=== PATIENT | male | born 1940 | race Caucasian/White ===

== ENCOUNTER 2016-09-09 12:46 | Emergency (ER) | END 2016-09-09 15:54 | disposition home or self-care (01) ==

== ENCOUNTER 2017-08-06 15:33 | Outpatient (CLI) | payer MEDICARE | END 2017-08-06 15:34 | disposition home or self-care (01) | LOC: LAB 15:33 | PROVIDERS: ATTEND Orthopaedic Surgery | DX: M25.552 Pain in left hip (principal) | CPT/HCPCS: 36415; 85651; 86140 ==

== ENCOUNTER 2017-08-14 14:04 | Outpatient (CLI) | payer MEDICARE ==
--- NOTE | 2017-08-14 17:04 | MRI Report ---
EXAM: RIGHT KNEE MRI WITHOUT CONTRAST EXAM DATE: 08/14/2017 03:09 PM. CLINICAL HISTORY: Right knee pain for 6 months. Difficulty extending the right knee. Posterior right knee swelling. Prostate cancer. COMPARISON: None. TECHNIQUE: Multiplanar, multisequence T1-weighted and fluid-sensitive sequences of the knee without c ontrast. Other: None. FINDINGS: Bones and Articular Cartilage: Marginal osteophytes at the femoral condyles, tibial plateau, and whatley lla. Focal grade 2-3 chondromalacia at the medial femoral condyle. Severe grade 4 chondromalacia and multiple subcortical cysts at the lateral patella and lateral trochlear facet. Grade 3-4 chondromalac ia at the median ridge of the patella and femoral trochlear groove. No patellar subluxation. Medial Meniscus: The medial meniscus is intact. Lateral Meniscus: The lateral meniscus is intact. Cruciate Ligaments: The anterior and posterior cruciate ligaments are intact. Collateral Ligaments: The medial collateral and lateral collateral ligamentous structures are intact. Tendons: The quadriceps, patellar, semimembranosus, and popliteus tendons are unremarkable. Musculature: Mild to moderate fatty atrophy at the biceps femoris muscle. Mild fatty atrophy at the s emimembranosus muscle. Severe fatty atrophy at the gastrocnemius muscle. Other: No effusion. No popliteal cyst. There are a few loose ossified bodies within the suprapatellar recess of the joint capsule. One of the larger loose bodies measures approximately 2.1 x 0.5 x 1 cm. The medial and lateral retinacula are intact. The subcutaneous tissues and fat pads are unremarkable . IMPRESSION: 1. Patellofemoral compartment osteoarthritis. 2. No ligament or meniscal injury. 3. Fatty atrophy within the biceps femoris, semimembranosus, and gastrocnemius muscles which may be d ue to a chronic denervation process. 4. Loose bodies within the suprapatellar recess of the joint capsule. [facility] MUSCULOSKELETAL [facility]IOLOGY SECTION Referring Provider Line: [phone] SITE ID: [id number]
== END 2017-08-14 14:05 | disposition home or self-care (01) ==
LOC: DI 14:04
PROVIDERS: ATTEND Orthopaedic Surgery
DX: M23.41 Loose body in knee, right knee (principal); M17.11 Unilateral primary osteoarthritis, right knee

== ENCOUNTER 2017-08-18 11:25 | Outpatient (CLI) | payer MEDICARE ==
--- NOTE | 2017-08-19 12:06 | Nuclear Medicine Report ---
EXAM: TRIPLE-PHASE BONE SCAN LIMITED EXAM DATE: 08/18/2017 04:16 PM. CLINICAL HISTORY: Possible prosthetic loosening. COMPARISON: X-ray 07/09/2017. TECHNIQUE: Patient was injected with 32 mCi of technetium 99m MDP intravenously with flow phase gamma camera imaging anteriorly over the hips, 5 seconds per frame for 1 minute. Subsequently, blood pool images of the the hips were obtained. The patient returned 3 hours later for multiple spot images of the hips and proximal femora. FINDINGS: Flow Phase: There is minimally increased tracer flow to the left. Blood Pool Phase: Minimal asymmetry, with slightly greater tracer accumulation in the region of the l eft hip. Delayed Phase: Left side: Increased tracer uptake along the femoral shaft of the prosthesis and in the left greater trochanter. This corresponds with periprosthetic loosening visible on the x-ray. Right side: Mildly increased tracer uptake at the distal tip of the femoral prosthesis, which may als o indicate loosening or physiologic reaction. IMPRESSION: 1. Mildly increased tracer localization to the left hip on the arterial and blood pool phases. Modera tely increased tracer uptake along the femoral stem of the prosthesis consistent with prosthetic loos ening. 2. Minimally increased tracer uptake at the distal tip of the femoral stem of the right hip prosthesi s, which may represent physiologic reaction or early prosthetic loosening. [facility] Referring Provider Line: [phone] SITE ID: [id number]
== END 2017-08-18 11:26 | disposition home or self-care (01) ==
LOC: DI 11:25
PROVIDERS: ATTEND Orthopaedic Surgery
DX: M25.552 Pain in left hip (principal)
CPT/HCPCS: 78315; A9503

== ENCOUNTER 2019-06-23 12:42 | Outpatient (CLI) | payer MEDICARE, OTHER ==
--- NOTE | 2019-06-24 15:51 | CT Report ---
Reason: S/P BILATERAL HIP REPLACEMENTS Procedure Date: 06/23/2019 Accession Number: [id number] / [id number] Procedure: CT - PELVIS WO CPT Code: FULL RESULT: EXAM: CT BONY PELVIS WITHOUT CONTRAST EXAM DATE: 06/23/2019 01:08 PM. CLINICAL HISTORY: Status post bilateral hip replacements. Abnormal lucency left femoral component of the left hip replacement compatible with loosening left hip radiographs 11/25/2017. COMPARISON: HIP 2 VIEW LT 10/28/2017 1:55 PM. BONE 3-PHASE 08/18/2017 12:34 PM. TECHNIQUE: Thin-section axial images were acquired of the pelvis without contrast. Post-processing: Coronal and sagittal reformats. Other: None. In accordance with CT protocol optimization, one or more of the following dose reduction techniques were utilized for this exam: automated exposure control, adjustment of mA and/or KV based on patient size, or use of iterative reconstructive technique. FINDINGS: Bones: There is left proximal femoral shaft osteopenia as noted on the radiograph 10/28/2017 without periprosthetic bony resorption to confirm prosthesis loosening. Asymmetric sclerosis proximal right femoral shaft with smooth periosteal new bone formation. Focal isotope uptake adjacent to the intramedullary stem right femur on the three-phase bone scan 08/18/2017. Less than 2 mm bony resorption distal intramedullary stem left femoral shaft. Sacroiliac Joints: No widening, erosions, or sclerosis. Symphysis Pubis: Unremarkable. Right Hip: Negative for right hip and total arthroplasty dislocation. Acetabular prosthesis is without evidence for loosening. Moderate right acetabulum spurring. Right acetabulum prosthesis well-seated posterior superior fixation screws. Left Hip: Left total hip arthroplasty is negative for dislocation. Minimal osseous mantle for two posterior left hip acetabulum fixation screws. Stable position of the proximal left femur intramedullary prosthesis as compared to the left hip radiographs 10/28/2017. Musculature: Severe asymmetric atrophy of the left psoas muscle. Severe postsurgical atrophy low lumbar and sacrum posterior paraspinal muscles with fatty replacement. Pelvic Cavity: The visualized bowel, bladder, and reproductive organs are unremarkable on this noncontrast exam. Prostatectomy and pelvic lymph node dissection. Low position of the bladder. Nondistended bladder. Umbilical hernia, 2.8 cm, with subcutaneous herniation of 3.3 cm properitoneal fat. Other: No lymphadenopathy. No free air or free fluid. The other visualized soft tissues are unremarkable. Spondylosis deformans lower lumbar spine. Ankylosis sacroiliac joints bilaterally consistent with ankylosing spondylitis. Moderate bilateral L4-L5, severe right L5-S1 and moderate left L5-S1 facet joint arthrosis. L4 and L5 wide laminectomy defects. IMPRESSION: 1. Proximal left femoral shaft osteopenia without significant bony resorption to confirm loosening. 2. Proximal right femoral shaft sclerosis and smooth periosteal reaction with no discrete periprosthetic fracture identified. Negative for bony resorption to confirm prosthesis loosening. 3. Bilateral sacroiliac joint ankylosis consistent with ankylosing spondylitis and there is lower lumbar and lumbosacral spondylosis deformans. 4. Consider repeat three-phase bone scan for comparison to 08/18/2017. [facility]
== END 2019-06-23 12:43 | disposition home or self-care (01) ==
LOC: DI 12:42
PROVIDERS: ATTEND Orthopaedic Surgery
DX: M85.88 Other specified disorders of bone density and structure, other site (principal); M89.8X8 Other specified disorders of bone, other site; M43.28 Fusion of spine, sacral and sacrococcygeal region; M47.816 Spondylosis without myelopathy or radiculopathy, lumbar region; M47.817 Spondylosis without myelopathy or radiculopathy, lumbosacral region; Z96.643 Presence of artificial hip joint, bilateral
CPT/HCPCS: 72192

== ENCOUNTER 2019-08-30 16:29 | Outpatient (CLI) | payer MEDICARE, OTHER ==
[2019-08-30 16:42] LABS: BASOPHILS # (AUTO) 0.1 10^3/uL (0.0-0.1); BASOPHILS % (AUTO) 0.9 %; EOSINOPHILS # (AUTO) 0.2 10^3/uL (0.0-0.7); EOSINOPHILS % (AUTO) 2.8 %; HGB - HEMOGLOBIN 14.7 g/dL (14.0-18.0); LYMPHOCYTES # (AUTO) 1.8 10^3/uL (1.5-3.5); LYMPHOCYTES % (AUTO) 24.3 %; MEAN CORPUSCULAR HEMOGLOBIN 31.1 pg (27.0-31.0); MEAN CORPUSCULAR HGB CONC 33.3 g/dL (32.0-36.0); MEAN CORPUSCULAR VOLUME 93.4 fL (80.0-94.0); MEAN PLATELET VOLUME 9.9 fL (7.4-11.4); MONOCYTES # (AUTO) 0.7 10^3/uL (0.0-1.0); NEUTROPHILS # (AUTO) 4.6 10^3/uL (1.5-6.6); NEUTROPHILS % (AUTO) 62.5 %; PLT - PLATELET COUNT 227 10^3/uL (130-450); RED BLOOD COUNT 4.73 10^6/uL (4.70-6.10); RED CELL DISTRIBUTION WIDTH 13.2 % (12.0-15.0); WHITE BLOOD COUNT 7.4 x10^3/uL (4.8-10.8)
[2019-08-30 16:57] LABS: ALBUMIN 4.2 g/dL (3.2-5.5); ALBUMIN/GLOBULIN RATIO 1.3 (1.0-2.2); ALKALINE PHOSPHATASE 76 IU/L (42-121); ALT ALANINE AMINOTRANSFERASE 14 IU/L (10-60); AST ASPARTATE AMINOTRANSFERASE 23 IU/L (10-42); BILIRUBIN,TOTAL 0.7 mg/dL (0.2-1.0); BUN - BLOOD UREA NITROGEN 19 mg/dL (6-20); CALCIUM 9.5 mg/dL (8.5-10.3); CARBON DIOXIDE - CO2 27 mmol/L (21-32); CHLORIDE 107 mmol/L (101-111); CHOL/HDL RATIO 3.8 (<5.0); CHOLESTEROL 158 mg/dL; GFR - MDRD 72 (>89); GLUCOSE 99 mg/dL (70-100); HDL CHOLESTEROL 42 mg/dL; LDL CHOLESTEROL,CALCULATED 102 mg/dL; LDL/HDL RATIO 2.4 (<3.6); SODIUM 141 mmol/L (135-145); TOTAL PROTEIN 7.4 g/dL (6.7-8.2); VLDL CHOLESTEROL 14 mg/dL
== END 2019-08-30 16:30 | disposition home or self-care (01) ==
LOC: LAB 16:29
PROVIDERS: ATTEND Internal Medicine
DX: Z79.899 Other long term (current) drug therapy (principal); E78.5 Hyperlipidemia, unspecified; Z12.5 Encounter for screening for malignant neoplasm of prostate
CPT/HCPCS: 36415; 80053; 80061; 85025; G0103; 83721; 84153

== ENCOUNTER 2023-04-02 11:32 | Outpatient (CLI) | payer MEDICARE, OTHER ==
--- NOTE | 2023-04-02 18:55 | Ultrasound Report ---
PROCEDURE: Soft tissue ultrasound INDICATIONS: LUMP ON NECK TECHNIQUE: Real-time scanning was performed of the right posterior neck soft tissue. COMPARISON: None FINDINGS: Anterior concern, there is a small normal-appearing subcutaneous lymph node measuring now 1.2 x 0.6 x 0.3 cm. IMPRESSION: Small subcutaneous normal-appearing right neck lymph node Reviewed by: Jhonatan Diaz MD on 04/02/2023 5:54 PM [facility] Approved by: Jhonatan Diaz MD on 04/02/2023 5:54 PM [facility] Station ID: [id number]
== END 2023-04-02 11:33 | disposition home or self-care (01) ==
LOC: DI 11:32
PROVIDERS: ATTEND Student in an Organized Health Care Education/Training Program
DX: R59.1 Generalized enlarged lymph nodes (principal)